=== PATIENT | male | born 1960 | race Caucasian/White ===

== ENCOUNTER 2017-06-22 14:37 | Outpatient (CLI) | payer OTHER ==
--- NOTE | 2017-06-22 18:40 | XRAY Report ---
THREE VIEW LUMBAR SPINE: 06/22/2017 CLINICAL INDICATION: Somatic dysfunction. AP, lateral, coned-down views of the lumbar spine demonstrate stable degenerative disk and facet dise ase. Remote compression of L1 is stable. No new compression fracture is seen. The bowel gas patter n appears unremarkable. IMPRESSION: STABLE DEGENERATIVE CHANGES. NO EVIDENCE OF INTERVAL FRACTURE. JOB #: [id number] EXT JOB #:[id number]
== END 2017-06-22 14:38 | disposition home or self-care (01) ==
LOC: DI 14:37
PROVIDERS: ATTEND Family Medicine
DX: M51.36 Other intervertebral disc degeneration, lumbar region (principal); M47.896 Other spondylosis, lumbar region
CPT/HCPCS: 72100